=== PATIENT | female | born 1985 | race Two or more races ===

== ENCOUNTER 2017-11-16 07:16 | Emergency (ER) | payer MEDICAID ==
[~2017-11-16] VITALS: Ht 170.2 cm; Wt 68.9 kg
[2017-11-16 07:26] VITALS: BP 120/56
== END 2017-11-16 10:33 | disposition home or self-care (01) ==
LOC: ER 07:16
DX: I88.9 Nonspecific lymphadenitis, unspecified (principal); R10.9 Unspecified abdominal pain
CPT/HCPCS: 76856; 81025